=== PATIENT | female | born 2000 | race Caucasian/White ===

== ENCOUNTER 2019-02-03 07:52 | Inpatient (IN) | payer OTHER ==
[~2019-02-03] VITALS: Ht 149.9 cm; Wt 68.0 kg
[2019-02-03 07:57] VITALS: BP_SYST 122
[2019-02-03] MEDS ORDERED: NS 1000 ML IV.SOLN IV ONE (08:15)
[2019-02-03] MEDS ORDERED: ONDANSETRON HCL 4 MG/2 ML VIAL IVP ONE (08:15)
[2019-02-03] MEDS ORDERED: KETOROLAC TROMETHAMINE 30 MG VIAL IVP ONE (08:15)
[2019-02-03 08:38] LABS: BASOPHILS % (AUTO) 0.2 % (0.0-2.0); EOSINOPHILS % (AUTO) 0.1 % (0.0-4.0); HEMATOCRIT 38.7 % (36-48); HEMOGLOBIN 13.3 g/dL (12.0-16.0); LYMPHOCYTES # (AUTO) 0.6 K/uL (1.0-5.5); LYMPHOCYTES % (AUTO) 22.1 % (20.5-51.5); MEAN CORPUSCULAR HEMOGLOBIN 31 pg (27-31); MEAN CORPUSCULAR HGB CONC 35 % (32-36); MEAN CORPUSCULAR VOLUME 91 fL (79.0-98.0); MONOCYTES # (AUTO) 0.1 K/uL (0.0-1.0); MONOCYTES % (AUTO) 2.8 % (1.7-9.3); NEUTROPHILS # (AUTO) 2.1 K/uL (1.8-7.7); NEUTROPHILS % (AUTO) 74.8 % (40.0-70.0); PLATELET COUNT (AUTO) 183 K/uL (130-430); RED BLOOD CELL COUNT(AUTO) 4.24 MIL/uL (4.2-6.2); RED CELL DISTRIBUTION WIDTH 12.7 % (9.0-15.0); WHITE BLOOD COUNT (AUTO) 2.9 K/uL (4.5-11.0)
[2019-02-03] MEDS ORDERED: ALBUTEROL SULFATE 0.083% 2.5 MG/3 ML VIAL.NEB INH ONE (08:45)
[2019-02-03] MEDS ORDERED: IPRATROPIUM BROM 0.5 MG/2.5 ML VIAL.NEB (ATROVENT) INH ONE (08:45)
[2019-02-03] MEDS ORDERED: ACETAMINOPHEN WITH CODEINE 12.5 ML UDC PO ONE (08:45)
[2019-02-03] MEDS ORDERED: fentaNYL CITRATE/PF 100 MCG/2 ML AMP IVP ONE (08:45)
[2019-02-03 08:47] LABS: CALCIUM 8.5 mg/dL (8.4-11.0); CREATININE 0.87 mg/dL (0.55-1.30); POTASSIUM 3.4 mmol/L (3.5-5.1)
[2019-02-03 08:48] LABS: BILIRUBIN,URINE NEGATIVE (NEGATIVE); BLOOD, URINE 3+ (NEGATIVE); CLARITY/URINE CLEAR (CLEAR); COLOR,URINE YELLOW (YELLOW); GLUCOSE,URINE NEGATIVE (NEGATIVE); KETONES,URINE TRACE (NEGATIVE); LEUKOCYTE ESTERASE ,URINE TRACE (NEGATIVE); NITRITE, URINE NEGATIVE (NEGATIVE); PROTEIN URINE NEGATIVE (NEGATIVE); UROBILINOGEN,URINE 0.2 (0.2-1.0)
[2019-02-03 08:51] LABS: INR 0.9 (0.8-1.2); PROTHROMBIN TIME 9.1 SECS (9.5-12.5)
[2019-02-03 08:53] LABS: ALBUMIN 3.3 g/dL (3.4-4.8); TOTAL BILIRUBIN 0.3 mg/dL (0.0-1.0)
[2019-02-03] MEDS ORDERED: ACETAMINOPHEN 500 MG TABLET PO ONE (09:30)
[2019-02-03 09:49] LABS: BACTERIA,URINE FEW /HPF (None Seen); MUCUS,URINE 1+ /LPF (None Seen)
[2019-02-03] MEDS ORDERED: cefTRIAXone 1 GM IVPB PREMIX 50 ML IV ONE (10:45)
[2019-02-03] MEDS ORDERED: ACETAMINOPHEN 325 MG TABLET PO PRN (12:00)
[2019-02-03] MEDS: NACL 0.9% 1,000 ML IV SCH ×2 (13:45→18:23)
[2019-02-03] MEDS: guaiFENesin/DEXTROMETHORPHAN 10 ML UDC PO PRN ×2 (14:55→20:05)
[2019-02-03 16:47] VITALS: BP_SYST 117
[2019-02-03] MEDS ORDERED: AZITHROMYCIN 500 MG in NS 250 ML IV SCH (18:00)
[2019-02-03] MEDS ORDERED: AZITHROMYCIN 500 MG/VIAL (ZITHROMAX) IV ONE (19:24)
[2019-02-03 20:00] VITALS: BP_SYST 124
[2019-02-03] MEDS: OSELTAMIVIR PHOSPHATE 75 MG CAPSULE PO SCH (21:11)
[2019-02-03] MEDS: ONDANSETRON HCL 4 MG/2 ML VIAL IVP PRN (21:14)
[2019-02-04] VITALS (7 sets, daily range): BP systolic 120–131
[2019-02-04] MEDS: guaiFENesin/DEXTROMETHORPHAN 10 ML UDC PO PRN ×4 (04:14→21:32)
[2019-02-04] MEDS: NACL 0.9% 1,000 ML IV SCH ×2 (06:32→17:27)
[2019-02-04] MEDS: cefTRIAXone 1 GM in D5W 50 ML IV SCH (08:52)
[2019-02-04] MEDS: OSELTAMIVIR PHOSPHATE 75 MG CAPSULE PO SCH ×2 (09:06→21:32)
[2019-02-04] MEDS ORDERED: cefTRIAXone 1 GM in D5W 50 ML IV SCH (10:00)
[2019-02-04] MEDS: IPRATROPIUM/ALBUTEROL SULFATE 3 ML AMPUL.NEB (DUONEB) INH PRN (13:15)
[2019-02-04] MEDS ORDERED: AZITHROMYCIN 250 MG in NS 250 ML IV SCH (21:00)
[2019-02-05 00:10] VITALS: BP_SYST 127
[2019-02-05] MEDS: guaiFENesin/DEXTROMETHORPHAN 10 ML UDC PO PRN (01:33)
[2019-02-05] MEDS: ONDANSETRON HCL 4 MG/2 ML VIAL IVP PRN (01:35)
[2019-02-05] MEDS: IPRATROPIUM/ALBUTEROL SULFATE 3 ML AMPUL.NEB (DUONEB) INH PRN ×3 (02:04→09:22)
[2019-02-05] MEDS: NACL 0.9% 1,000 ML IV SCH (02:55)
[2019-02-05 08:01] LABS: BASOPHILS % (AUTO) 0.2 % (0.0-2.0); EOSINOPHILS % (AUTO) 0.3 % (0.0-4.0); HEMATOCRIT 34.7 % (36-48); LYMPHOCYTES # (AUTO) 0.8 K/uL (1.0-5.5); LYMPHOCYTES % (AUTO) 25.1 % (20.5-51.5); MEAN CORPUSCULAR HEMOGLOBIN 32 pg (27-31); MEAN CORPUSCULAR HGB CONC 35 % (32-36); MEAN CORPUSCULAR VOLUME 91 fL (79.0-98.0); MONOCYTES # (AUTO) 0.2 K/uL (0.0-1.0); MONOCYTES % (AUTO) 7.1 % (1.7-9.3); NEUTROPHILS % (AUTO) 67.3 % (40.0-70.0); PLATELET COUNT (AUTO) 230 K/uL (130-430); RED BLOOD CELL COUNT(AUTO) 3.81 MIL/uL (4.2-6.2); RED CELL DISTRIBUTION WIDTH 12.5 % (9.0-15.0)
[2019-02-05 08:05] VITALS: BP_SYST 124
[2019-02-05 08:24] LABS: ALBUMIN 2.7 g/dL (3.4-4.8); CALCIUM 7.8 mg/dL (8.4-11.0); CREATININE 0.62 mg/dL (0.55-1.30); POTASSIUM 3.5 mmol/L (3.5-5.1); TOTAL BILIRUBIN 0.2 mg/dL (0.0-1.0)
[2019-02-05] MEDS: OSELTAMIVIR PHOSPHATE 75 MG CAPSULE PO SCH (09:34)
[2019-02-05] MEDS: cefTRIAXone 1 GM in D5W 50 ML IV SCH (09:34)
[2019-02-05 10:26] VITALS: BP_SYST 124
[2019-02-05] MEDS ORDERED: LEVO750T45 PO (10:32)
[2019-02-05] MEDS ORDERED: ALBMDI INH (10:35)
[2019-02-05] MEDS ORDERED: DOXY100T2 PO (11:16)
[2019-02-05] MEDS ORDERED: SACC250C3 PO (11:17)
[2019-02-05 12:00] VITALS: BP_SYST 122
== END 2019-02-05 11:45 | disposition home or self-care (01) | DRG 194 ==
LOC: SED 07:52 → STU 11:58
PROVIDERS: ADMIT Internal Medicine; ATTEND Internal Medicine
DX: J18.9 Pneumonia, unspecified organism (principal); I48.20 Chronic atrial fibrillation, unspecified; E66.9 Obesity, unspecified; J30.9 Allergic rhinitis, unspecified; B34.9 Viral infection, unspecified
CPT/HCPCS: 36415; 71045; 71250-TC; 80053; 81000-TC; 81025; 83036; 83605; 84484; 85025; 85610-TC; 85651-TC; 85730-TC; 86140; 86403; 86710; 86713; 86738; 87040-TC; 87070-TC; 87081; 87086; 87205-TC; 87449; 93005; 94640; 96361; 96365; 96375; 99285; G0378; G9035; J0456; J0696; J1885; J2405; J3010; J7030; J7050; J7060; J7613; J7620